=== PATIENT | male | born 1995 | race Caucasian/White ===

== ENCOUNTER 2017-05-04 07:24 | Emergency (ER) | payer MEDICAID ==
[~2017-05-04] VITALS: Ht 170.2 cm; Wt 66.3 kg
[~2017-05-04 07:24] MED LIST: CEPH500C5 PO; CLOT15CR9 TOP; ONDA4TAB6 PO; SACC250C PO; TRAM50TA2 PO
[2017-05-04] MEDS ORDERED: HYDR-3965 PO (08:19)
[2017-05-04] MEDS ORDERED: ONDA4TAB9 PO (08:19)
[2017-05-04] MEDS ORDERED: ibuprofen tablet 400 MG TABLET PO ONE (08:20)
[2017-05-04 08:43] VITALS: BP 121/72
== END 2017-05-04 08:45 | disposition home or self-care (01) ==
LOC: ER 07:24
DX: S92.354A Nondisplaced fracture of fifth metatarsal bone, right foot, initial encounter for closed fracture (principal); F12.10 Cannabis abuse, uncomplicated; V87.8XXA Person injured in other specified noncollision transport accidents involving motor vehicle (traffic), initial encounter; Y93.89 Activity, other specified; Y92.89 Other specified places as the place of occurrence of the external cause; Y99.8 Other external cause status
CPT/HCPCS: 29515; 73630; 99284; A6449

== ENCOUNTER 2017-06-24 15:05 | Emergency (ER) | payer MEDICAID ==
[~2017-06-24] VITALS: Ht 170.2 cm; Wt 55.0 kg
[~2017-06-24 15:05] MED LIST changes: -CEPH500C5 PO
[2017-06-24 15:47] LABS: CLARITY,URINE CLEAR (Clear); COLOR,URINE STRAW (Yellow); GLUCOSE, URINE NEGATIVE (Neg); KETONES,URINE NEGATIVE (Neg); LEUKOCYTE ESTERASE ,URINE NEGATIVE (Neg); NITRITES, URINE NEGATIVE (Neg); OCCULT BLOOD,URINE TRACE-INTACT (Neg); PROTEIN,URINE NEGATIVE (Neg); UROBILINOGEN,URINE 0.2 E.U/dL (0.2-1.0)
[2017-06-24 15:49] LABS: UA COLLECTION TYPE CLN CATCH MIDSTREAM
[2017-06-24 15:50] LABS: BASOPHILS % (AUTO) 0.3 % (0-1); EOSINOPHILS # (AUTO) 0.2 X10'3 (0-0.9); EOSINOPHILS % (AUTO) 1.7 % (0-6); HEMATOCRIT 42.7 % (42.0-52.0); HEMOGLOBIN 14.6 g/dl (14.0-17.9); LYMPHOCYTES # (AUTO) 1.7 X10'3 (1.1-4.8); LYMPHOCYTES % (AUTO) 17.6 % (21-51); MEAN CORPUSCULAR HEMOGLOBIN 30.1 PG (27.0-31.0); MEAN CORPUSCULAR HGB CONC 34.3 % (33.0-36.5); MEAN CORPUSCULAR VOLUME 87.6 FL (78-98); MEAN PLATELET VOLUME 8.7 FL (7.4-10.4); MONOCYTES # (AUTO) 0.5 X10'3 (0-0.9); NEUTROPHILS # (AUTO) 7.3 X10'3 (1.8-7.7); NEUTROPHILS % (AUTO) 75.4 % (42-75); PLATELET COUNT 280 X10'3 (140-440); RED BLOOD COUNT 4.87 X10'6 (4.70-6.10); RED CELL DISTRIBUTION WIDTH 14.7 % (11.5-14.5); WHITE BLOOD COUNT 9.7 X10'3 (4.5-11.0)
[2017-06-24 15:52] LABS: MUCUS STRANDS FEW /LPF (Neg); SQUAMOUS EPITHELIAL CELL,UR FEW /LPF (FEW)
[2017-06-24 15:53] LABS: BACTERIA,URINE FEW /HPF (Neg); RBC,URINE 0-2 /HPF (0-2); WBC,URINE 0-4 /HPF (0-4)
[2017-06-24 16:05] LABS: ALANINE AMINOTRANSFERASE 29 U/L (12-78); ALBUMIN 4.5 G/DL (3.4-5.0); ALBUMIN/GLOBULIN RATIO 1.2 (1.1-1.5); ALKALINE PHOSPHATASE 83 IU/L (46-116); ANION GAP 17 (8-16); ASPARTATE AMINO TRANSFERASE 17 U/L (10-37); BILIRUBIN,TOTAL 0.5 MG/DL (0.1-1.0); BLOOD UREA NITROGEN 11 MG/DL (7-18); BUN/CREATININE RATIO 12.8 (5.4-32.0); CALCIUM 9.6 MG/DL (8.5-10.1); CHLORIDE 104 MMOL/L (99-107); CREATININE 0.86 MG/DL (0.60-1.10); ETHANOL 0.185 GM/DL (0.0-0.010); GLUCOSE 102 MG/DL (70-104); POTASSIUM 3.3 MMOL/L (3.5-5.1); SODIUM 144 MMOL/L (135-145); TOTAL CARBON DIOXIDE 23.1 MMOL/L (24-32); TOTAL PROTEIN 8.3 G/DL (6.4-8.2); eGFR > 90 ML/MIN
[2017-06-24 16:08] LABS: URINE AMPHETAMINE SCREEN NEGATIVE (Neg); URINE BARBITUATE SCREEN NEGATIVE (Neg); URINE BENZODIAZEPINES SCREEN NEGATIVE (Neg); URINE CANNABINOID SCREEN POSITIVE (Neg); URINE COCAINE SCREEN NEGATIVE (Neg); URINE METHADONE SCREEN NEGATIVE (Neg); URINE OPIATE SCREEN NEGATIVE (Neg); URINE PHENCYCLIDINE SCREEN NEGATIVE (Neg)
[2017-06-24] MEDS ORDERED: IBUP-1984 PO (19:00)
[2017-06-24 19:58] VITALS: BP 120/49
== END 2017-06-24 20:13 | disposition home or self-care (01) ==
LOC: ER 15:06
DX: F10.129 Alcohol abuse with intoxication, unspecified (principal); M79.671 Pain in right foot; G89.29 Other chronic pain; F12.10 Cannabis abuse, uncomplicated; K08.89 Other specified disorders of teeth and supporting structures; Z98.890 Other specified postprocedural states; Z60.2 Problems related to living alone; Z59.0 Homelessness; Z79.899 Other long term (current) drug therapy; Y90.0 Blood alcohol level of less than 20 mg/100 ml
CPT/HCPCS: 36415; 73630; 80053; 80305; 80320; 81001; 85025; 99285; L3260

== ENCOUNTER 2017-07-01 14:30 | Emergency (ER) | payer MEDICAID ==
[~2017-07-01] VITALS: Ht 170.2 cm; Wt 68.2 kg
[~2017-07-01 14:30] MED LIST changes: +IBUP-1984 PO
[2017-07-01 14:33] VITALS: BP 132/74
[2017-07-01] MEDS ORDERED: HYDROcodone/acetaminophen 10/325mg tab PO ONE (15:35)
[2017-07-01] MEDS ORDERED: amox tr/potassium clavulanate 875/125mg TAB PO ONE (15:35)
[2017-07-01] MEDS ORDERED: naproxen 500mg tablet PO ONE (15:35)
[2017-07-01] MEDS ORDERED: AMOX-580 PO (15:39)
[2017-07-01] MEDS ORDERED: HYDR-569 PO (15:39)
[2017-07-01] MEDS ORDERED: NAPR-56 PO (15:39)
== END 2017-07-01 15:50 | disposition home or self-care (01) ==
LOC: ER 14:31
DX: K04.7 Periapical abscess without sinus (principal); F12.10 Cannabis abuse, uncomplicated
CPT/HCPCS: 99283

== ENCOUNTER 2017-07-28 10:10 | Emergency (ER) | payer MEDICAID ==
[~2017-07-28] VITALS: Ht 170.2 cm; Wt 69.0 kg
[~2017-07-28 10:10] MED LIST changes: +AMOX-580 PO; +HYDR-569 PO; -IBUP-1984 PO; +NAPR-56 PO
[2017-07-28 10:21] VITALS: BP 115/64
== END 2017-07-28 11:55 | disposition left against medical advice (07) ==
LOC: ER 10:11
DX: T14.8XXA Other injury of unspecified body region, initial encounter (principal); Z53.21 Procedure and treatment not carried out due to patient leaving prior to being seen by health care provider; W57.XXXA Bitten or stung by nonvenomous insect and other nonvenomous arthropods, initial encounter; Y93.89 Activity, other specified; Y92.89 Other specified places as the place of occurrence of the external cause; Y99.8 Other external cause status

== ENCOUNTER 2017-07-29 19:37 | Emergency (ER) | payer MEDICAID | END 2017-07-29 21:34 | disposition left against medical advice (07) | LOC: ER 19:38 | DX: M00.9 Pyogenic arthritis, unspecified (principal); Z53.21 Procedure and treatment not carried out due to patient leaving prior to being seen by health care provider ==

== ENCOUNTER 2017-07-30 21:51 | Emergency (ER) | payer MEDICAID ==
[~2017-07-30] VITALS: Ht 172.7 cm; Wt 70.9 kg
[2017-07-31] MEDS ORDERED: ibuprofen tablet 400 MG TABLET PO ONE
[2017-07-31 00:06] VITALS: BP 138/78
[2017-07-31] MEDS ORDERED: ONDA4TAB12 PO (00:11)
[2017-07-31] MEDS ORDERED: BACDS PO (00:11)
[2017-07-31] MEDS ORDERED: NAPR-56 PO (00:11)
[2017-07-31] MEDS ORDERED: CEPH-572 PO (16:51)
[2017-07-31] MEDS ORDERED: SULF1TAB49 PO (16:51)
== END 2017-07-31 00:23 | disposition home or self-care (01) ==
LOC: ER 21:51
DX: L02.415 Cutaneous abscess of right lower limb (principal); G89.29 Other chronic pain; F12.10 Cannabis abuse, uncomplicated; Z60.2 Problems related to living alone; Z59.0 Homelessness; Z98.890 Other specified postprocedural states; Z79.899 Other long term (current) drug therapy
CPT/HCPCS: 99283

== ENCOUNTER 2017-07-31 16:09 | Emergency (ER) | payer MEDICAID ==
[~2017-07-31] VITALS: Ht 167.6 cm; Wt 62.0 kg
[~2017-07-31 16:09] MED LIST changes: +BACDS PO; +ONDA4TAB12 PO
[2017-07-31] MEDS ORDERED: LIDOcaine 1.5% w/epinephrine 1:200,000 5ml ampul IJ ONE (16:40)
[2017-07-31] MEDS ORDERED: SULF1TAB49 PO (16:51)
[2017-07-31] MEDS ORDERED: CEPH-572 PO (16:51)
[2017-07-31 17:06] VITALS: BP 118/66
[2017-08-02] MEDS ORDERED: CEPH500C5 PO (11:22)
== END 2017-07-31 17:08 | disposition home or self-care (01) ==
LOC: ER 16:10
DX: L02.415 Cutaneous abscess of right lower limb (principal); G89.29 Other chronic pain; F12.10 Cannabis abuse, uncomplicated; Z98.890 Other specified postprocedural states; Z79.899 Other long term (current) drug therapy; Z60.2 Problems related to living alone; Z59.0 Homelessness
CPT/HCPCS: 10060; 99283; J3490

== ENCOUNTER 2017-08-03 09:39 | Emergency (ER) | payer MEDICAID ==
[~2017-08-03] VITALS: Ht 167.6 cm; Wt 63.0 kg
[~2017-08-03 09:39] MED LIST changes: -AMOX-580 PO; +CEPH-572 PO; +CEPH500C5 PO; +SULF1TAB49 PO
[2017-08-03 10:08] VITALS: BP 138/78
[2017-08-03] MEDS ORDERED: IBUP-1984 PO (10:32)
[2017-08-04] MEDS ORDERED: SULF1TAB49 PO (15:57)
== END 2017-08-03 10:51 | disposition home or self-care (01) ==
LOC: ER 09:39
DX: Z48.00 Encounter for change or removal of nonsurgical wound dressing (principal); G89.29 Other chronic pain; F12.10 Cannabis abuse, uncomplicated; Z98.890 Other specified postprocedural states; Z79.899 Other long term (current) drug therapy; Z59.0 Homelessness; Z60.2 Problems related to living alone
CPT/HCPCS: 99282

== ENCOUNTER 2017-08-08 18:06 | Emergency (ER) | payer MEDICAID ==
[~2017-08-08] VITALS: Ht 167.6 cm; Wt 68.1 kg
[~2017-08-08 18:06] MED LIST changes: +IBUP-1984 PO
[2017-08-08 18:20] VITALS: BP 121/65
== END 2017-08-08 21:28 | disposition left against medical advice (07) ==
LOC: ER 18:06
DX: M79.644 Pain in right finger(s) (principal); Z53.21 Procedure and treatment not carried out due to patient leaving prior to being seen by health care provider

== ENCOUNTER 2019-10-26 18:55 | Emergency (ER) | payer MEDICAID ==
[~2019-10-26] VITALS: Ht 170.2 cm; Wt 65.9 kg
[~2019-10-26 18:55] MED LIST changes: -BACDS PO; -CEPH-572 PO; -CEPH500C5 PO; +HYDR-4383 PO; -HYDR-569 PO; -IBUP-1984 PO; -NAPR-56 PO; -SULF1TAB49 PO
[2019-10-26 19:05] VITALS: BP 111/76
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
[2019-10-26] MEDS ORDERED: ibuprofen tablet 400 MG TABLET PO ONE (21:30)
[2019-10-26] MEDS ORDERED: IBUP-1985 PO (21:46)
== END 2019-10-26 21:52 | disposition home or self-care (01) ==
LOC: ER 19:05
DX: S00.03XA Contusion of scalp, initial encounter (principal); S50.311A Abrasion of right elbow, initial encounter; G89.29 Other chronic pain; F32.9 Major depressive disorder, single episode, unspecified; F12.90 Cannabis use, unspecified, uncomplicated; R42 Dizziness and giddiness; Z98.890 Other specified postprocedural states; Z60.2 Problems related to living alone; Z59.0 Homelessness; Z79.899 Other long term (current) drug therapy; Y09 Assault by unspecified means; Y93.89 Activity, other specified; Y92.89 Other specified places as the place of occurrence of the external cause; Y99.8 Other external cause status
CPT/HCPCS: 99284

== ENCOUNTER 2019-12-24 08:42 | Emergency (ER) | payer MEDICAID ==
[~2019-12-24] VITALS: Ht 170.2 cm; Wt 65.9 kg
[~2019-12-24 08:42] MED LIST changes: +IBUP-1985 PO
[2019-12-24 08:54] VITALS: BP 145/73
[2019-12-24] MEDS ORDERED: LORazepam 1 MG tablet PO ONE (09:20)
[2019-12-24 09:25] LABS: BASOPHILS % (AUTO) 0.5 % (0-1); EOSINOPHILS % (AUTO) 0.5 % (0-6); HEMATOCRIT 45.1 % (42.0-52.0); HEMOGLOBIN 15.6 g/dl (14.0-17.9); LYMPHOCYTES # (AUTO) 1.3 X10'3 (1.1-4.8); LYMPHOCYTES % (AUTO) 17.6 % (21-51); MEAN CORPUSCULAR HEMOGLOBIN 30.9 PG (27.0-31.0); MEAN CORPUSCULAR HGB CONC 34.6 g/dL (33.0-36.5); MEAN CORPUSCULAR VOLUME 89.2 FL (78-98); MONOCYTES # (AUTO) 0.4 X10'3 (0-0.9); MONOCYTES % (AUTO) 5.5 % (2-12); NEUTROPHILS # (AUTO) 5.6 X10'3 (1.8-7.7); NEUTROPHILS % (AUTO) 75.9 % (42-75); PLATELET COUNT 245 X10'3 (140-440); RED BLOOD COUNT 5.06 X10'6 (4.70-6.10); RED CELL DISTRIBUTION WIDTH 14.1 % (11.5-14.5); WHITE BLOOD COUNT 7.3 X10'3 (4.5-11.0)
[2019-12-24 09:38] LABS: PARTIAL THROMBOPLASTIN TIME 26 SECONDS (22-32)
[2019-12-24 09:41] LABS: ALANINE AMINOTRANSFERASE 52 U/L (12-78); ALBUMIN 4.7 G/DL (3.4-5.0); ALBUMIN/GLOBULIN RATIO 1.3 (1.1-1.5); ALKALINE PHOSPHATASE 79 IU/L (46-116); ANION GAP 12 (8-16); ASPARTATE AMINO TRANSFERASE 30 U/L (10-37); BLOOD UREA NITROGEN 14 MG/DL (7-18); BUN/CREATININE RATIO 15.4 (5.4-32.0); CALCIUM 9.5 MG/DL (8.5-10.1); CHLORIDE 101 MMOL/L (99-107); CREATININE 0.91 MG/DL (0.60-1.10); GLUCOSE 98 MG/DL (70-104); POTASSIUM 3.6 MMOL/L (3.5-5.1); SODIUM 135 MMOL/L (135-145); TOTAL CARBON DIOXIDE 22.2 MMOL/L (24-32); TOTAL PROTEIN 8.3 G/DL (6.4-8.2); eGFR > 90 ML/MIN
[2019-12-24 09:50] LABS: MAGNESIUM 1.9 MG/DL (1.5-2.4)
[2019-12-24 09:52] LABS: ETHANOL < 0.010 GM/DL (0.0-0.010)
[2019-12-24 09:52] LABS: CLARITY,URINE CLEAR (Clear); COLOR,URINE YELLOW (Yellow); GLUCOSE, URINE NEGATIVE (Neg); KETONES,URINE >=80 mg/dl (Neg); LEUKOCYTE ESTERASE ,URINE TRACE (Neg); NITRITES, URINE NEGATIVE (Neg); OCCULT BLOOD,URINE NEGATIVE (Neg); PROTEIN,URINE TRACE mg/dl (Neg)
[2019-12-24 09:55] LABS: UA COLLECTION TYPE CLN CATCH MIDSTREAM
[2019-12-24 09:57] LABS: BACTERIA,URINE FEW /HPF (Neg); MUCUS STRANDS MODERATE /LPF (Neg); RBC,URINE NONE SEEN /HPF (0-2); SQUAMOUS EPITHELIAL CELL,UR FEW /LPF (FEW); URINE AMPHETAMINE SCREEN NEGATIVE (Neg); URINE BARBITUATE SCREEN NEGATIVE (Neg); URINE BENZODIAZEPINES SCREEN NEGATIVE (Neg); URINE CANNABINOID SCREEN POSITIVE (Neg); URINE COCAINE SCREEN NEGATIVE (Neg); URINE METHADONE SCREEN NEGATIVE (Neg); URINE OPIATE SCREEN NEGATIVE (Neg); URINE PHENCYCLIDINE SCREEN NEGATIVE (Neg)
[2019-12-24] MEDS ORDERED: CEPH250T PO (10:33)
[2019-12-24] MEDS ORDERED: ondansetron 4mg rapidly disintigrating tab PO ONE (10:35)
[2019-12-24] MEDS ORDERED: cephalexin 500mg capsule PO ONE (10:35)
== END 2019-12-24 10:47 | disposition home or self-care (01) ==
LOC: ER 08:42
DX: F41.9 Anxiety disorder, unspecified (principal); N39.0 Urinary tract infection, site not specified; G89.29 Other chronic pain; F32.9 Major depressive disorder, single episode, unspecified; F12.90 Cannabis use, unspecified, uncomplicated; Z98.890 Other specified postprocedural states; Z60.2 Problems related to living alone; Z59.0 Homelessness; Z79.2 Long term (current) use of antibiotics; Z79.899 Other long term (current) drug therapy
CPT/HCPCS: 36415; 80053; 80305; 80320; 81001; 83735; 84443; 84484; 85025; 85610; 85730; 93005; 99284

== ENCOUNTER 2019-12-26 08:28 | Emergency (ER) | payer MEDICAID ==
[~2019-12-26] VITALS: Ht 170.2 cm; Wt 65.5 kg
[~2019-12-26 08:28] MED LIST changes: +CEPH250T PO
[2019-12-26] MEDS ORDERED: normal saline 1000ml 1,000 ML IV ONE (08:40)
[2019-12-26] MEDS ORDERED: famotidine/PF 10 mg/ml inj IV ONE (08:40)
[2019-12-26] MEDS ORDERED: haloperidol lactate 5mg/ml inj IM ONE (08:40)
[2019-12-26 09:19] LABS: ALANINE AMINOTRANSFERASE 44 U/L (12-78); ALBUMIN 4.1 G/DL (3.4-5.0); ALBUMIN/GLOBULIN RATIO 1.3 (1.1-1.5); ALKALINE PHOSPHATASE 66 IU/L (46-116); ANION GAP 14 (8-16); ASPARTATE AMINO TRANSFERASE 24 U/L (10-37); BILIRUBIN,TOTAL 0.7 MG/DL (0.1-1.0); BLOOD UREA NITROGEN 14 MG/DL (7-18); CALCIUM 8.9 MG/DL (8.5-10.1); CHLORIDE 108 MMOL/L (99-107); GLUCOSE 155 MG/DL (70-104); LIPASE 64 U/L (73-393); SODIUM 141 MMOL/L (135-145); TOTAL CARBON DIOXIDE 19.4 MMOL/L (24-32); TOTAL PROTEIN 7.2 G/DL (6.4-8.2)
[2019-12-26] MEDS ORDERED: metoclopramide 5 mg/ml inj IV ONE (09:25)
[2019-12-26 09:39] LABS: BUN/CREATININE RATIO 14.1 (5.4-32.0); eGFR > 90 ML/MIN
[2019-12-26 09:40] LABS: CREATININE 0.99 MG/DL (0.60-1.10); POTASSIUM 3.5 MMOL/L (3.5-5.1)
[2019-12-26] MEDS ORDERED: ondansetron/PF 4mg/2ml inj IV ONE (10:25)
[2019-12-26] MEDS ORDERED: LORazepam 2 mg/ml vial IV ONE (10:45)
[2019-12-26] MEDS ORDERED: ONDA4TAB6 PO (11:26)
[2019-12-26 11:49] VITALS: BP 108/43
== END 2019-12-26 11:52 | disposition home or self-care (01) ==
LOC: ER 08:28
DX: R11.2 Nausea with vomiting, unspecified (principal); R10.13 Epigastric pain; R10.10 Upper abdominal pain, unspecified; G89.29 Other chronic pain; F41.9 Anxiety disorder, unspecified; F32.9 Major depressive disorder, single episode, unspecified; F12.90 Cannabis use, unspecified, uncomplicated; Z60.2 Problems related to living alone; Z59.0 Homelessness; Z72.89 Other problems related to lifestyle; Z79.899 Other long term (current) drug therapy
CPT/HCPCS: 36415; 80053; 83690; 96372; 96374; 96375; 99284; J1630; J2060; J2405; J2765; J3490; J7030

== ENCOUNTER 2019-12-30 08:00 | Emergency (ER) | payer MEDICAID ==
[~2019-12-30] VITALS: Ht 170.2 cm; Wt 66.7 kg
[2019-12-30] MEDS ORDERED: ondansetron/PF 4mg/2ml inj IV ONE (08:25)
[2019-12-30] MEDS ORDERED: haloperidol lactate 5mg/ml inj IM ONE (08:25)
[2019-12-30] MEDS ORDERED: normal saline 1000ml 1,000 ML IV ONE (08:25)
[2019-12-30] MEDS ORDERED: famotidine/PF 10 mg/ml inj IV ONE (08:25)
[2019-12-30] MEDS ORDERED: diphenhydrAMINE 50 mg/ml inj IV ONE (08:25)
[2019-12-30] MEDS ORDERED: pantoprazole 40 MG vial IV ONE (08:25)
[2019-12-30] MEDS ORDERED: ketorolac tromethamine 15mg/ml inj. IV ONE (08:25)
[2019-12-30] MEDS ORDERED: metoclopramide 5 mg/ml inj IV ONE (08:25)
[2019-12-30] MEDS ORDERED: ONDA8TAB6 PO (08:29)
[2019-12-30] MEDS ORDERED: PANT-47 PO (08:29)
[2019-12-30 09:11] VITALS: BP 144/81
== END 2019-12-30 09:13 | disposition home or self-care (01) ==
LOC: ER 08:01
DX: K29.20 Alcoholic gastritis without bleeding (principal); F10.10 Alcohol abuse, uncomplicated; Y90.9 Presence of alcohol in blood, level not specified; G89.29 Other chronic pain; F41.9 Anxiety disorder, unspecified; F32.9 Major depressive disorder, single episode, unspecified; F12.90 Cannabis use, unspecified, uncomplicated; Z98.890 Other specified postprocedural states; Z60.2 Problems related to living alone; Z59.0 Homelessness; Z79.2 Long term (current) use of antibiotics; Z79.899 Other long term (current) drug therapy
CPT/HCPCS: 96361; 96372; 96374; 96375; 99284; C9113; J1200; J1630; J1885; J2405; J2765; J3490; J7030

== ENCOUNTER 2020-01-18 06:47 | Emergency (ER) | payer MEDICAID ==
[~2020-01-18] VITALS: Ht 177.8 cm; Wt 70.0 kg
[~2020-01-18 06:47] MED LIST changes: +ONDA8TAB6 PO; +PANT-47 PO
[2020-01-18] MEDS ORDERED: LORazepam 2 mg/ml vial IV ONE (07:35)
[2020-01-18] MEDS ORDERED: normal saline 1000ML IV soln IVB ONE (07:35)
[2020-01-18 08:06] LABS: BASOPHILS % (AUTO) 0.4 % (0-1); EOSINOPHILS % (AUTO) 0.1 % (0-6); HEMATOCRIT 42.5 % (42.0-52.0); LYMPHOCYTES # (AUTO) 0.7 X10'3 (1.1-4.8); LYMPHOCYTES % (AUTO) 6.6 % (21-51); MEAN CORPUSCULAR HEMOGLOBIN 29.5 PG (27.0-31.0); MEAN CORPUSCULAR HGB CONC 32.9 g/dL (33.0-36.5); MEAN CORPUSCULAR VOLUME 89.6 FL (78-98); MEAN PLATELET VOLUME 8.8 FL (7.4-10.4); MONOCYTES # (AUTO) 1.1 X10'3 (0-0.9); MONOCYTES % (AUTO) 9.7 % (2-12); NEUTROPHILS # (AUTO) 9.1 X10'3 (1.8-7.7); NEUTROPHILS % (AUTO) 83.2 % (42-75); PLATELET COUNT 250 X10'3 (140-440); RED BLOOD COUNT 4.74 X10'6 (4.70-6.10); RED CELL DISTRIBUTION WIDTH 13.9 % (11.5-14.5); WHITE BLOOD COUNT 10.9 X10'3 (4.5-11.0)
[2020-01-18 08:22] LABS: ALANINE AMINOTRANSFERASE 22 U/L (12-78); ALBUMIN/GLOBULIN RATIO 1.1 (1.1-1.5); ALKALINE PHOSPHATASE 93 IU/L (46-116); ANION GAP 14 (8-16); ASPARTATE AMINO TRANSFERASE 16 U/L (10-37); BILIRUBIN,TOTAL 0.5 MG/DL (0.1-1.0); BLOOD UREA NITROGEN 7 MG/DL (7-18); CALCIUM 8.7 MG/DL (8.5-10.1); CHLORIDE 105 MMOL/L (99-107); CREATININE 0.78 MG/DL (0.60-1.10); GLUCOSE 130 MG/DL (70-104); POTASSIUM 3.2 MMOL/L (3.5-5.1); SODIUM 140 MMOL/L (135-145); TOTAL CARBON DIOXIDE 21.4 MMOL/L (24-32); TOTAL PROTEIN 7.7 G/DL (6.4-8.2); eGFR > 90 ML/MIN
[2020-01-18 08:24] LABS: ETHANOL < 0.010 GM/DL (0.0-0.010)
[2020-01-18 08:52] VITALS: BP 115/58
== END 2020-01-18 08:54 | disposition home or self-care (01) ==
LOC: ER 06:47
DX: K29.20 Alcoholic gastritis without bleeding (principal); F10.10 Alcohol abuse, uncomplicated; R06.4 Hyperventilation; E86.0 Dehydration; G89.29 Other chronic pain; F41.9 Anxiety disorder, unspecified; F32.9 Major depressive disorder, single episode, unspecified; F12.90 Cannabis use, unspecified, uncomplicated; Z98.890 Other specified postprocedural states; Z60.2 Problems related to living alone; Z59.0 Homelessness; Z79.899 Other long term (current) drug therapy; Y90.0 Blood alcohol level of less than 20 mg/100 ml
CPT/HCPCS: 36415; 80053; 80320; 85025; 96361; 96374; 99284; J2060; J7030

== ENCOUNTER 2020-01-31 18:46 | Emergency (ER) | payer MEDICAID ==
[~2020-01-31] VITALS: Ht 170.2 cm; Wt 68.5 kg
[2020-01-31 19:47] LABS: COLOR,URINE YELLOW (Yellow); GLUCOSE, URINE NEGATIVE (Neg); KETONES,URINE NEGATIVE (Neg); LEUKOCYTE ESTERASE ,URINE MODERATE (Neg); NITRITES, URINE NEGATIVE (Neg); OCCULT BLOOD,URINE TRACE-INTACT (Neg); PH,URINE 5.5 (4.8-8.0); PROTEIN,URINE NEGATIVE (Neg); UROBILINOGEN,URINE 0.2 E.U/dL (0.2-1.0)
[2020-01-31 19:48] LABS: CLARITY,URINE CLOUDY (Clear); UA COLLECTION TYPE CLN CATCH MIDSTREAM
[2020-01-31 19:50] LABS: WBC,URINE TNTC /HPF (0-4)
[2020-01-31 19:51] LABS: BACTERIA,URINE 3+ /HPF (Neg); MUCUS STRANDS FEW /LPF (Neg); RBC,URINE 0-2 /HPF (0-2); SQUAMOUS EPITHELIAL CELL,UR MODERATE /LPF (FEW); TRANSITIONAL EPI CELLS,URINE FEW /HPF; WBC CLUMPS,URINE MODERATE /HPF (NEGATIVE)
[2020-01-31] MEDS ORDERED: NITR100C6 PO (20:02)
[2020-01-31] MEDS ORDERED: CefTRIAXone 250MG IM Kit w/LIDOcaine IM ONE (20:05)
[2020-01-31] MEDS ORDERED: azithromycin 250mg tablet PO ONE (20:05)
[2020-01-31 20:14] VITALS: BP 110/56
== END 2020-01-31 20:16 | disposition home or self-care (01) ==
LOC: ER 18:47
DX: N39.0 Urinary tract infection, site not specified (principal); R30.9 Painful micturition, unspecified; R31.9 Hematuria, unspecified; G89.29 Other chronic pain; F41.9 Anxiety disorder, unspecified; F32.9 Major depressive disorder, single episode, unspecified; F12.90 Cannabis use, unspecified, uncomplicated; Z72.89 Other problems related to lifestyle; Z60.2 Problems related to living alone; Z59.0 Homelessness; Z98.890 Other specified postprocedural states; Z79.2 Long term (current) use of antibiotics; Z79.899 Other long term (current) drug therapy
CPT/HCPCS: 81001; 87088; 96372; 99283; J0696

== ENCOUNTER 2020-02-03 07:08 | Emergency (ER) | payer MEDICAID ==
[~2020-02-03] VITALS: Ht 170.2 cm; Wt 62.0 kg
[~2020-02-03 07:08] MED LIST changes: +NITR100C6 PO
[2020-02-03 08:00] LABS: HEMOGLOBIN 15.7 g/dl (14.0-17.9); MEAN PLATELET VOLUME 8.9 FL (7.4-10.4)
[2020-02-03] MEDS ORDERED: proCHLORperazine 10 MG/2 ml inj IV ONE (08:00)
[2020-02-03] MEDS ORDERED: normal saline 1000ML IV soln IVB ONE ×2 (08:00)
[2020-02-03] MEDS ORDERED: pantoprazole 40 MG vial IV ONE (08:00)
[2020-02-03 08:02] LABS: BASOPHILS % (AUTO) 0.4 % (0-1); EOSINOPHILS # (AUTO) 0.1 X10'3 (0-0.9); EOSINOPHILS % (AUTO) 0.8 % (0-6); HEMATOCRIT 46.7 % (42.0-52.0); LYMPHOCYTES # (AUTO) 1.5 X10'3 (1.1-4.8); LYMPHOCYTES % (AUTO) 15.2 % (21-51); MEAN CORPUSCULAR HEMOGLOBIN 30.1 PG (27.0-31.0); MEAN CORPUSCULAR HGB CONC 33.6 g/dL (33.0-36.5); MEAN CORPUSCULAR VOLUME 89.8 FL (78-98); MONOCYTES # (AUTO) 0.3 X10'3 (0-0.9); MONOCYTES % (AUTO) 3.5 % (2-12); NEUTROPHILS # (AUTO) 7.8 X10'3 (1.8-7.7); NEUTROPHILS % (AUTO) 80.1 % (42-75); PLATELET COUNT 327 X10'3 (140-440); RED CELL DISTRIBUTION WIDTH 13.7 % (11.5-14.5); WHITE BLOOD COUNT 9.7 X10'3 (4.5-11.0)
[2020-02-03 08:18] LABS: ALANINE AMINOTRANSFERASE 32 U/L (12-78); ALBUMIN 4.6 G/DL (3.4-5.0); ALBUMIN/GLOBULIN RATIO 1.1 (1.1-1.5); ALKALINE PHOSPHATASE 94 IU/L (46-116); ANION GAP 13 (8-16); ASPARTATE AMINO TRANSFERASE 17 U/L (10-37); BILIRUBIN,TOTAL 0.5 MG/DL (0.1-1.0); BLOOD UREA NITROGEN 12 MG/DL (7-18); BUN/CREATININE RATIO 12.8 (5.4-32.0); CALCIUM 10.1 MG/DL (8.5-10.1); CHLORIDE 101 MMOL/L (99-107); CREATININE 0.94 MG/DL (0.60-1.10); GLUCOSE 122 MG/DL (70-104); POTASSIUM 3.2 MMOL/L (3.5-5.1); SODIUM 137 MMOL/L (135-145); TOTAL CARBON DIOXIDE 22.7 MMOL/L (24-32); TOTAL PROTEIN 8.9 G/DL (6.4-8.2); eGFR > 90 ML/MIN
[2020-02-03 08:21] LABS: ETHANOL < 0.010 GM/DL (0.0-0.010); LIPASE 92 U/L (73-393)
[2020-02-03] MEDS ORDERED: diazepam inj 5 MG/ML inj. IV ONE (08:55)
[2020-02-03] MEDS ORDERED: ondansetron/PF 4mg/2ml inj IV ONE (08:55)
[2020-02-03] MEDS ORDERED: PANT-47 PO (09:56)
[2020-02-03] MEDS ORDERED: ONDA8TAB13 PO (09:56)
[2020-02-03 10:19] VITALS: BP 100/58
== END 2020-02-03 10:26 | disposition home or self-care (01) ==
LOC: ER 07:08
DX: K29.20 Alcoholic gastritis without bleeding (principal); F10.10 Alcohol abuse, uncomplicated
CPT/HCPCS: 36415; 74022; 80053; 80320; 83690; 85025; 96361; 96374; 96375; 99284; C9113; J0780; J2405; J3360; J7030

== ENCOUNTER 2020-02-07 11:45 | Emergency (ER) | payer MEDICAID ==
[~2020-02-07] VITALS: Ht 170.2 cm; Wt 65.9 kg
[~2020-02-07 11:45] MED LIST changes: +ONDA8TAB13 PO
[2020-02-07 11:47] VITALS: BP 116/67
[2020-02-07] MEDS ORDERED: ONDA4TAB6 PO (12:12)
== END 2020-02-07 12:36 | disposition home or self-care (01) ==
LOC: ER 11:46
DX: R11.2 Nausea with vomiting, unspecified (principal); F10.10 Alcohol abuse, uncomplicated; G89.29 Other chronic pain; F41.9 Anxiety disorder, unspecified; F32.9 Major depressive disorder, single episode, unspecified; F12.90 Cannabis use, unspecified, uncomplicated; Z60.2 Problems related to living alone; Z59.0 Homelessness; Z79.899 Other long term (current) drug therapy; Y90.9 Presence of alcohol in blood, level not specified
CPT/HCPCS: 99283

== ENCOUNTER 2020-02-11 07:27 | Emergency (ER) | payer MEDICAID ==
[~2020-02-11] VITALS: Ht 170.2 cm; Wt 66.2 kg
[2020-02-11] MEDS ORDERED: diphenhydrAMINE 50 mg/ml inj IV ONE (07:55)
[2020-02-11] MEDS ORDERED: ondansetron/PF 4mg/2ml inj IV ONE (07:55)
[2020-02-11] MEDS ORDERED: normal saline 1000ML IV soln IVB ONE (07:55)
[2020-02-11] MEDS ORDERED: haloperidol lactate 5mg/ml inj IM ONE (07:55)
[2020-02-11 08:11] LABS: BASOPHILS % (AUTO) 0.3 % (0-1); EOSINOPHILS % (AUTO) 0.1 % (0-6); HEMATOCRIT 44.1 % (42.0-52.0); HEMOGLOBIN 14.7 g/dl (14.0-17.9); LYMPHOCYTES # (AUTO) 0.8 X10'3 (1.1-4.8); LYMPHOCYTES % (AUTO) 7.3 % (21-51); MEAN CORPUSCULAR HEMOGLOBIN 30.2 PG (27.0-31.0); MEAN CORPUSCULAR HGB CONC 33.3 g/dL (33.0-36.5); MEAN CORPUSCULAR VOLUME 90.6 FL (78-98); MEAN PLATELET VOLUME 8.9 FL (7.4-10.4); MONOCYTES # (AUTO) 0.4 X10'3 (0-0.9); MONOCYTES % (AUTO) 3.1 % (2-12); NEUTROPHILS # (AUTO) 10.1 X10'3 (1.8-7.7); NEUTROPHILS % (AUTO) 89.2 % (42-75); PLATELET COUNT 268 X10'3 (140-440); RED BLOOD COUNT 4.87 X10'6 (4.70-6.10); RED CELL DISTRIBUTION WIDTH 14.5 % (11.5-14.5); WHITE BLOOD COUNT 11.3 X10'3 (4.5-11.0)
[2020-02-11 08:29] LABS: ALANINE AMINOTRANSFERASE 33 U/L (12-78); ALBUMIN 4.6 G/DL (3.4-5.0); ALBUMIN/GLOBULIN RATIO 1.2 (1.1-1.5); ALKALINE PHOSPHATASE 79 IU/L (46-116); ANION GAP 9 (8-16); ASPARTATE AMINO TRANSFERASE 19 U/L (10-37); BILIRUBIN,TOTAL 0.5 MG/DL (0.1-1.0); BLOOD UREA NITROGEN 7 MG/DL (7-18); BUN/CREATININE RATIO 6.4 (5.4-32.0); CALCIUM 9.4 MG/DL (8.5-10.1); CHLORIDE 105 MMOL/L (99-107); CREATININE 1.09 MG/DL (0.60-1.10); GLUCOSE 136 MG/DL (70-104); LIPASE 81 U/L (73-393); POTASSIUM 3.2 MMOL/L (3.5-5.1); SODIUM 141 MMOL/L (135-145); TOTAL CARBON DIOXIDE 26.9 MMOL/L (24-32); TOTAL PROTEIN 8.3 G/DL (6.4-8.2); eGFR 82 ML/MIN
[2020-02-11 10:19] VITALS: BP 95/47
[2020-02-11] MEDS ORDERED: PROM25TA14 PO (10:27)
== END 2020-02-11 11:04 | disposition home or self-care (01) ==
LOC: ER 07:27
DX: R11.15 Cyclical vomiting syndrome unrelated to migraine (principal); R11.2 Nausea with vomiting, unspecified; R10.84 Generalized abdominal pain; G89.29 Other chronic pain; F41.9 Anxiety disorder, unspecified; F32.9 Major depressive disorder, single episode, unspecified; F12.90 Cannabis use, unspecified, uncomplicated; Z98.890 Other specified postprocedural states; Z72.89 Other problems related to lifestyle; Z60.2 Problems related to living alone; Z59.0 Homelessness; Z79.2 Long term (current) use of antibiotics; Z79.899 Other long term (current) drug therapy
CPT/HCPCS: 36415; 80053; 83690; 85025; 96361; 96372; 96374; 96375; 99285; J1200; J1630; J2405; J7030

== ENCOUNTER 2020-02-12 07:46 | Emergency (ER) | payer MEDICAID ==
[~2020-02-12] VITALS: Ht 170.2 cm; Wt 66.9 kg
[~2020-02-12 07:46] MED LIST changes: +PROM25TA14 PO
[2020-02-12 07:55] VITALS: BP 124/81
[2020-02-12] MEDS ORDERED: diphenhydrAMINE 25mg capsule PO ONE (08:20)
== END 2020-02-12 08:26 | disposition home or self-care (01) ==
LOC: ER 07:47
DX: R25.2 Cramp and spasm (principal); F31.9 Bipolar disorder, unspecified; F32.9 Major depressive disorder, single episode, unspecified; G89.29 Other chronic pain; F12.10 Cannabis abuse, uncomplicated; Z59.0 Homelessness; Z79.899 Other long term (current) drug therapy
CPT/HCPCS: 99282; Q0163

== ENCOUNTER 2020-03-07 01:18 | Emergency (ER) | payer MEDICAID ==
[~2020-03-07] VITALS: Ht 170.2 cm; Wt 68.2 kg
[2020-03-07 01:33] LABS: BASOPHILS % (AUTO) 0.5 % (0-1); EOSINOPHILS # (AUTO) 0.1 X10'3 (0-0.9); EOSINOPHILS % (AUTO) 0.6 % (0-6); HEMATOCRIT 44.2 % (42.0-52.0); HEMOGLOBIN 15.1 g/dl (14.0-17.9); LYMPHOCYTES # (AUTO) 2.9 X10'3 (1.1-4.8); LYMPHOCYTES % (AUTO) 29.4 % (21-51); MEAN CORPUSCULAR HEMOGLOBIN 30.5 PG (27.0-31.0); MEAN CORPUSCULAR HGB CONC 34.2 g/dL (33.0-36.5); MEAN CORPUSCULAR VOLUME 89.3 FL (78-98); MEAN PLATELET VOLUME 8.7 FL (7.4-10.4); MONOCYTES # (AUTO) 0.5 X10'3 (0-0.9); MONOCYTES % (AUTO) 5.4 % (2-12); NEUTROPHILS # (AUTO) 6.4 X10'3 (1.8-7.7); NEUTROPHILS % (AUTO) 64.1 % (42-75); PLATELET COUNT 275 X10'3 (140-440); RED BLOOD COUNT 4.94 X10'6 (4.70-6.10); RED CELL DISTRIBUTION WIDTH 14.5 % (11.5-14.5)
[2020-03-07] MEDS ORDERED: proCHLORperazine 10 MG/2 ml inj IV ONE (01:35)
[2020-03-07] MEDS ORDERED: diphenhydrAMINE 50 mg/ml inj IV ONE (01:35)
[2020-03-07] MEDS ORDERED: ondansetron/PF 4mg/2ml inj IV ONE (01:35)
[2020-03-07] MEDS ORDERED: pantoprazole 40 MG vial IV ONE (01:45)
[2020-03-07] MEDS ORDERED: normal saline 1000ML IV soln IVB ONE (01:45)
[2020-03-07 01:47] LABS: ALANINE AMINOTRANSFERASE 30 U/L (12-78); ALBUMIN 4.6 G/DL (3.4-5.0); ALBUMIN/GLOBULIN RATIO 1.3 (1.1-1.5); ALKALINE PHOSPHATASE 84 IU/L (46-116); ANION GAP 16 (8-16); ASPARTATE AMINO TRANSFERASE 21 U/L (10-37); BLOOD UREA NITROGEN 12 MG/DL (7-18); BUN/CREATININE RATIO 10.7 (5.4-32.0); CALCIUM 9.2 MG/DL (8.5-10.1); CHLORIDE 102 MMOL/L (99-107); CREATININE 1.12 MG/DL (0.60-1.10); GLUCOSE 162 MG/DL (70-104); LIPASE 156 U/L (73-393); POTASSIUM 3.4 MMOL/L (3.5-5.1); SODIUM 138 MMOL/L (135-145); TOTAL CARBON DIOXIDE 19.8 MMOL/L (24-32); TOTAL PROTEIN 8.1 G/DL (6.4-8.2); eGFR 80 ML/MIN
[2020-03-07] MEDS ORDERED: metoclopramide 5 mg/ml inj IV ONE (02:10)
[2020-03-07 02:23] VITALS: BP 123/60
== END 2020-03-07 02:51 | disposition home or self-care (01) ==
LOC: ER 01:19
DX: R11.15 Cyclical vomiting syndrome unrelated to migraine (principal); R11.10 Vomiting, unspecified; G89.29 Other chronic pain; F41.9 Anxiety disorder, unspecified; F32.9 Major depressive disorder, single episode, unspecified; F12.90 Cannabis use, unspecified, uncomplicated; Z72.89 Other problems related to lifestyle; Z98.890 Other specified postprocedural states; Z60.2 Problems related to living alone; Z59.0 Homelessness; Z79.899 Other long term (current) drug therapy
CPT/HCPCS: 36415; 80053; 83690; 85025; 96361; 96374; 96375; 99284; C9113; J0780; J1200; J2405; J2765; J7030

== ENCOUNTER 2020-03-09 05:43 | Emergency (ER) | payer MEDICAID ==
[~2020-03-09] VITALS: Ht 170.2 cm; Wt 65.9 kg
[2020-03-09] MEDS ORDERED: diphenhydrAMINE 50 mg/ml inj IV ONE (05:50)
[2020-03-09] MEDS ORDERED: ondansetron/PF 4mg/2ml inj IV ONE (05:50)
[2020-03-09] MEDS ORDERED: haloperidol lactate 5mg/ml inj IM ONE (05:50)
[2020-03-09] MEDS ORDERED: normal saline 1000ML IV soln IVB ONE (05:50)
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
[2020-03-09 06:29] LABS: ALANINE AMINOTRANSFERASE 25 U/L (12-78); ALBUMIN 4.5 G/DL (3.4-5.0); ALBUMIN/GLOBULIN RATIO 1.4 (1.1-1.5); ALKALINE PHOSPHATASE 77 IU/L (46-116); ANION GAP 16 (8-16); ASPARTATE AMINO TRANSFERASE 17 U/L (10-37); BILIRUBIN,TOTAL 0.7 MG/DL (0.1-1.0); BLOOD UREA NITROGEN 6 MG/DL (7-18); BUN/CREATININE RATIO 6.1 (5.4-32.0); CALCIUM 9.5 MG/DL (8.5-10.1); CHLORIDE 102 MMOL/L (99-107); CREATININE 0.99 MG/DL (0.60-1.10); GLUCOSE 136 MG/DL (70-104); LIPASE 154 U/L (73-393); POTASSIUM 3.6 MMOL/L (3.5-5.1); SODIUM 138 MMOL/L (135-145); TOTAL CARBON DIOXIDE 19.6 MMOL/L (24-32); TOTAL PROTEIN 7.8 G/DL (6.4-8.2); eGFR > 90 ML/MIN
--- NOTE | 2020-03-09 06:36 | NUR ---
Per Dr Duncan, pt not to be redrawn for clotted CBC.
[2020-03-09 06:58] VITALS: BP 127/67
== END 2020-03-09 07:28 | disposition home or self-care (01) ==
LOC: ER 05:43
DX: R11.15 Cyclical vomiting syndrome unrelated to migraine (principal); R11.2 Nausea with vomiting, unspecified; R10.84 Generalized abdominal pain; G89.29 Other chronic pain; F41.9 Anxiety disorder, unspecified; F32.9 Major depressive disorder, single episode, unspecified; F12.90 Cannabis use, unspecified, uncomplicated; Z98.890 Other specified postprocedural states; Z72.89 Other problems related to lifestyle; Z60.2 Problems related to living alone; Z59.0 Homelessness; Z79.2 Long term (current) use of antibiotics; Z79.899 Other long term (current) drug therapy
CPT/HCPCS: 36415; 80053; 83690; 93005; 96361; 96372; 96374; 96375; 99284; J1200; J1630; J2405; J7030

== ENCOUNTER 2020-04-24 11:37 | Emergency (ER) | payer MEDICAID ==
[~2020-04-24] VITALS: Ht 167.6 cm; Wt 65.7 kg
[2020-04-24 11:43] VITALS: BP 123/76
[2020-04-24] MEDS ORDERED: CEPH250T PO (12:18)
[2020-04-24] MEDS ORDERED: IBUP-1984 PO (12:18)
[2020-04-24] MEDS ORDERED: ibuprofen tablet 400 MG TABLET PO ONE (12:20)
== END 2020-04-24 12:33 | disposition home or self-care (01) ==
LOC: ER 11:38
DX: S09.90XA Unspecified injury of head, initial encounter (principal); G89.29 Other chronic pain; F41.9 Anxiety disorder, unspecified; F32.9 Major depressive disorder, single episode, unspecified; F12.90 Cannabis use, unspecified, uncomplicated; Z98.890 Other specified postprocedural states; Z72.89 Other problems related to lifestyle; Z60.2 Problems related to living alone; Z59.0 Homelessness; Z79.2 Long term (current) use of antibiotics; Z79.899 Other long term (current) drug therapy; X58.XXXA Exposure to other specified factors, initial encounter; Y93.89 Activity, other specified; Y92.89 Other specified places as the place of occurrence of the external cause; Y99.8 Other external cause status
CPT/HCPCS: 99283

== ENCOUNTER 2020-04-29 09:00 | Emergency (ER) | payer MEDICAID ==
[~2020-04-29] VITALS: Ht 167.6 cm; Wt 65.9 kg
[~2020-04-29 09:00] MED LIST changes: +IBUP-1984 PO
== END 2020-04-29 09:33 | disposition home or self-care (01) ==
LOC: ER 09:00
DX: S01.01XD Laceration without foreign body of scalp, subsequent encounter (principal); G89.29 Other chronic pain; Z48.02 Encounter for removal of sutures; Z79.2 Long term (current) use of antibiotics; Z79.899 Other long term (current) drug therapy; Z72.89 Other problems related to lifestyle; Z59.0 Homelessness; Y04.8XXD Assault by other bodily force, subsequent encounter
CPT/HCPCS: 99281

== ENCOUNTER 2020-06-17 08:04 | Emergency (ER) | payer MEDICAID ==
[~2020-06-17] VITALS: Ht 167.6 cm; Wt 70.0 kg
[~2020-06-17 08:04] MED LIST changes: -IBUP-1984 PO
[2020-06-17] MEDS ORDERED: ondansetron/PF 4mg/2ml inj IV ONE (08:20)
[2020-06-17] MEDS ORDERED: diphenhydrAMINE 50 mg/ml inj IV ONE (08:20)
[2020-06-17] MEDS ORDERED: normal saline 1000ML IV soln IVB ONE (08:20)
[2020-06-17] MEDS ORDERED: ketorolac trometh. 30mg/ml inj. IV ONE (08:20)
[2020-06-17] MEDS ORDERED: haloperidol lactate 5mg/ml inj IM ONE (08:20)
[2020-06-17 08:35] LABS: BASOPHILS # (AUTO) 0.1 X10'3 (0-0.2); BASOPHILS % (AUTO) 0.5 % (0-1); EOSINOPHILS % (AUTO) 0.2 % (0-6); HEMATOCRIT 45.7 % (42.0-52.0); HEMOGLOBIN 15.3 g/dl (14.0-17.9); LYMPHOCYTES # (AUTO) 1.8 X10'3 (1.1-4.8); LYMPHOCYTES % (AUTO) 12.4 % (21-51); MEAN CORPUSCULAR HEMOGLOBIN 30.5 PG (27.0-31.0); MEAN CORPUSCULAR HGB CONC 33.4 g/dL (33.0-36.5); MEAN CORPUSCULAR VOLUME 91.3 FL (78-98); MEAN PLATELET VOLUME 9.1 FL (7.4-10.4); MONOCYTES # (AUTO) 0.6 X10'3 (0-0.9); MONOCYTES % (AUTO) 4.1 % (2-12); NEUTROPHILS # (AUTO) 12.2 X10'3 (1.8-7.7); NEUTROPHILS % (AUTO) 82.8 % (42-75); PLATELET COUNT 317 X10'3 (140-440); RED CELL DISTRIBUTION WIDTH 14.4 % (11.5-14.5); WHITE BLOOD COUNT 14.7 X10'3 (4.5-11.0)
[2020-06-17 08:46] LABS: ALANINE AMINOTRANSFERASE 33 U/L (12-78); ALBUMIN 4.9 G/DL (3.4-5.0); ALBUMIN/GLOBULIN RATIO 1.4 (1.1-1.5); ALKALINE PHOSPHATASE 77 IU/L (46-116); ANION GAP 21 (8-16); ASPARTATE AMINO TRANSFERASE 20 U/L (10-37); BILIRUBIN,TOTAL 0.6 MG/DL (0.1-1.0); BLOOD UREA NITROGEN 17 MG/DL (7-18); BUN/CREATININE RATIO 15.3 (5.4-32.0); CHLORIDE 104 MMOL/L (99-107); CREATININE 1.11 MG/DL (0.60-1.10); GLUCOSE 210 MG/DL (70-104); LIPASE 73 U/L (73-393); POTASSIUM 3.4 MMOL/L (3.5-5.1); SODIUM 143 MMOL/L (135-145); TOTAL CARBON DIOXIDE 18.2 MMOL/L (24-32); TOTAL PROTEIN 8.5 G/DL (6.4-8.2); eGFR 81 ML/MIN
[2020-06-17] MEDS ORDERED: sucralfate 1gm/10ml UD suspension PO STA (08:56)
[2020-06-17] MEDS ORDERED: LIDOcaine Viscous 15ml cup MM ONE (09:00)
[2020-06-17] MEDS ORDERED: mag hydrox/Alum hydrox/simeth 30ml oral suspension PO ONE (09:00)
[2020-06-17 09:17] LABS: ETHANOL < 0.010 GM/DL (0.0-0.010)
--- NOTE | 2020-06-17 09:42 | NUR ---
MD ESPINAL INFORMED OF PATIENT'S DARK DAMARIS URINE AFTER 2 LITERS OF FLUID
[2020-06-17] MEDS ORDERED: POTASSIUM BICARB 20meq eff tab 20 MEQ TABLET.EFF PO ONE (09:45)
[2020-06-17] MEDS ORDERED: ringers solution, lactated 1000ml IV soln IV ONE (09:45)
[2020-06-17 10:16] LABS: CLARITY,URINE CLEAR (Clear); COLOR,URINE YELLOW (Yellow); GLUCOSE, URINE NEGATIVE (Neg); KETONES,URINE >=80 mg/dl (Neg); LEUKOCYTE ESTERASE ,URINE NEGATIVE (Neg); NITRITES, URINE NEGATIVE (Neg); OCCULT BLOOD,URINE NEGATIVE (Neg); PROTEIN,URINE TRACE mg/dl (Neg)
[2020-06-17 10:34] LABS: URINE AMPHETAMINE SCREEN NEGATIVE (Neg); URINE BARBITUATE SCREEN NEGATIVE (Neg); URINE BENZODIAZEPINES SCREEN NEGATIVE (Neg); URINE CANNABINOID SCREEN POSITIVE (Neg); URINE COCAINE SCREEN NEGATIVE (Neg); URINE METHADONE SCREEN NEGATIVE (Neg); URINE OPIATE SCREEN NEGATIVE (Neg); URINE PHENCYCLIDINE SCREEN NEGATIVE (Neg)
[2020-06-17 10:39] LABS: UA COLLECTION TYPE URINAL
[2020-06-17 10:40] LABS: MUCUS STRANDS MANY /LPF (Neg); SQUAMOUS EPITHELIAL CELL,UR FEW /LPF (FEW)
[2020-06-17 10:43] LABS: BACTERIA,URINE FEW /HPF (Neg); RBC,URINE 0-2 /HPF (0-2); WBC,URINE 0-4 /HPF (0-4)
[2020-06-17 12:09] LABS: ALBUMIN 3.5 G/DL (3.4-5.0); ANION GAP 8 (8-16); BLOOD UREA NITROGEN 15 MG/DL (7-18); BUN/CREATININE RATIO 18.3 (5.4-32.0); CALCIUM 8.3 MG/DL (8.5-10.1); CHLORIDE 112 MMOL/L (99-107); CREATININE 0.82 MG/DL (0.60-1.10); GLUCOSE 98 MG/DL (70-104); POTASSIUM 4.1 MMOL/L (3.5-5.1); SODIUM 145 MMOL/L (135-145); TOTAL CARBON DIOXIDE 25.1 MMOL/L (24-32); eGFR > 90 ML/MIN
[2020-06-17 13:14] VITALS: BP 106/55
== END 2020-06-17 13:00 | disposition home or self-care (01) ==
LOC: ER 08:04
DX: F12.188 Cannabis abuse with other cannabis-induced disorder (principal); R10.84 Generalized abdominal pain; G89.29 Other chronic pain; F41.9 Anxiety disorder, unspecified; F32.9 Major depressive disorder, single episode, unspecified; Z98.890 Other specified postprocedural states; Z72.89 Other problems related to lifestyle; Z60.2 Problems related to living alone; Z59.0 Homelessness; Z79.2 Long term (current) use of antibiotics; Z79.899 Other long term (current) drug therapy
CPT/HCPCS: 36415; 80048; 80053; 80305; 80320; 81001; 83690; 85025; 96361; 96372; 96374; 96375; 99285; J1200; J1630; J1885; J2405; J7030; J7120

== ENCOUNTER 2020-11-12 09:56 | Emergency (ER) | payer MEDICAID ==
[~2020-11-12] VITALS: Ht 167.6 cm; Wt 65.9 kg
[2020-11-12 11:08] VITALS: BP 116/77
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
== END 2020-11-12 13:05 | disposition home or self-care (01) ==
LOC: ER 09:57
DX: S90.31XA Contusion of right foot, initial encounter (principal); G89.29 Other chronic pain; F12.90 Cannabis use, unspecified, uncomplicated; Z59.0 Homelessness; Z79.899 Other long term (current) drug therapy; X58.XXXA Exposure to other specified factors, initial encounter; Y93.89 Activity, other specified; Y92.89 Other specified places as the place of occurrence of the external cause; Y99.8 Other external cause status
CPT/HCPCS: 73630; 99283

== ENCOUNTER 2020-12-10 09:59 | Emergency (ER) | payer MEDICAID ==
[~2020-12-10] VITALS: Ht 170.2 cm; Wt 65.9 kg
[2020-12-10 10:28] VITALS: BP 141/91
[2020-12-10 11:16] LABS: BASOPHILS % (AUTO) 0.2 % (0-1); EOSINOPHILS % (AUTO) 0 % (0-6); HEMATOCRIT 48.3 % (42.0-52.0); HEMOGLOBIN 16.1 g/dl (14.0-17.9); MEAN CORPUSCULAR HEMOGLOBIN 31.3 PG (27.0-31.0); MEAN CORPUSCULAR HGB CONC 33.3 g/dL (33.0-36.5); MEAN PLATELET VOLUME 8.8 FL (7.4-10.4); MONOCYTES # (AUTO) 0.3 X10'3 (0-0.9); MONOCYTES % (AUTO) 3.1 % (2-12); NEUTROPHILS # (AUTO) 9.4 X10'3 (1.8-7.7); NEUTROPHILS % (AUTO) 87.7 % (42-75); PLATELET COUNT 271 X10'3 (140-440); RED BLOOD COUNT 5.14 X10'6 (4.70-6.10); RED CELL DISTRIBUTION WIDTH 13.9 % (11.5-14.5); WHITE BLOOD COUNT 10.8 X10'3 (4.5-11.0)
[2020-12-10 11:25] LABS: ALANINE AMINOTRANSFERASE 30 U/L (12-78); ALBUMIN 4.7 G/DL (3.4-5.0); ALBUMIN/GLOBULIN RATIO 1.2 (1.1-1.5); ALKALINE PHOSPHATASE 91 IU/L (46-116); ANION GAP 18 (8-16); ASPARTATE AMINO TRANSFERASE 21 U/L (10-37); BILIRUBIN,TOTAL 0.5 MG/DL (0.1-1.0); BLOOD UREA NITROGEN 8 MG/DL (7-18); BUN/CREATININE RATIO 8.5 (5.4-32.0); CALCIUM 9.2 MG/DL (8.5-10.1); CHLORIDE 107 MMOL/L (99-107); CREATININE 0.94 MG/DL (0.60-1.10); GLUCOSE 130 MG/DL (70-104); LIPASE 69 U/L (73-393); POTASSIUM 3.6 MMOL/L (3.5-5.1); SODIUM 146 MMOL/L (135-145); TOTAL CARBON DIOXIDE 21.5 MMOL/L (24-32); TOTAL PROTEIN 8.7 G/DL (6.4-8.2); eGFR > 90 ML/MIN
[2020-12-10] MEDS ORDERED: ONDA4TAB12 PO (12:49)
[2020-12-10] MEDS ORDERED: ondansetron 4mg rapidly disintigrating tab PO ONE (12:50)
== END 2020-12-10 12:05 | disposition home or self-care (01) ==
LOC: ER 10:00
DX: R11.2 Nausea with vomiting, unspecified (principal); R53.83 Other fatigue; R10.84 Generalized abdominal pain; G89.29 Other chronic pain; F41.9 Anxiety disorder, unspecified; F32.9 Major depressive disorder, single episode, unspecified; F12.90 Cannabis use, unspecified, uncomplicated; Z98.890 Other specified postprocedural states; Z59.0 Homelessness; Z60.2 Problems related to living alone; Z79.2 Long term (current) use of antibiotics; Z79.899 Other long term (current) drug therapy
CPT/HCPCS: 36415; 80053; 83690; 85025; 99283

== ENCOUNTER 2020-12-11 07:24 | Emergency (ER) | payer MEDICAID ==
[~2020-12-11] VITALS: Ht 167.6 cm; Wt 65.9 kg
[2020-12-11 07:30] VITALS: BP 133/104
--- NOTE | 2020-12-11 08:14 | NUR ---
Patient notified general accounting clerk that he was leaving, states that he would try taking the antibiotics previously prescribed again. Dr. Salomon aware.
== END 2020-12-11 08:15 | disposition left against medical advice (07) ==
LOC: ER 07:27
DX: R11.10 Vomiting, unspecified (principal); Z53.21 Procedure and treatment not carried out due to patient leaving prior to being seen by health care provider

== ENCOUNTER 2021-02-14 09:16 | Emergency (ER) | payer MEDICAID ==
[~2021-02-14] VITALS: Ht 167.6 cm; Wt 68.2 kg
[~2021-02-14 09:16] MED LIST changes: -CEPH250T PO
[2021-02-14 09:23] VITALS: BP 127/86
[2021-02-14] MEDS ORDERED: LIDOcaine 1% W/epiNEPHrine 1:200,000 10ml vial IJ ONE (09:40)
[2021-02-14] MEDS ORDERED: TETanus/Pertussis (Acell)/Diphther VAC/PF (Tdap-Adult) 0.5ml syringe IMVAC ONE (09:40)
[2021-02-14] MEDS ORDERED: LIDOcaine 1% w/epiNEPHrine 1:200,000 30ml vial IJ ONE (10:10)
[2021-02-14] MEDS ORDERED: bacitracin 15gm ointment TP ONE (14:50)
== END 2021-02-14 14:57 | disposition home or self-care (01) ==
LOC: ER 09:17
DX: S01.01XA Laceration without foreign body of scalp, initial encounter (principal); G89.29 Other chronic pain; F41.9 Anxiety disorder, unspecified; F32.9 Major depressive disorder, single episode, unspecified; F17.200 Nicotine dependence, unspecified, uncomplicated; F12.90 Cannabis use, unspecified, uncomplicated; Z98.890 Other specified postprocedural states; Z72.89 Other problems related to lifestyle; Z60.2 Problems related to living alone; Z59.00 Homelessness unspecified; Z79.2 Long term (current) use of antibiotics; Z79.899 Other long term (current) drug therapy; X58.XXXA Exposure to other specified factors, initial encounter; Y93.89 Activity, other specified; Y92.89 Other specified places as the place of occurrence of the external cause; Y99.8 Other external cause status
CPT/HCPCS: 12032; 70450; 99284

== ENCOUNTER 2021-02-21 08:36 | Emergency (ER) | payer MEDICAID ==
[~2021-02-21] VITALS: Ht 167.6 cm; Wt 65.9 kg
[2021-02-21 08:48] VITALS: BP 106/66
== END 2021-02-21 09:34 | disposition home or self-care (01) ==
LOC: ER 08:37
DX: S01.01XD Laceration without foreign body of scalp, subsequent encounter (principal); F12.90 Cannabis use, unspecified, uncomplicated; Z72.89 Other problems related to lifestyle; Z60.2 Problems related to living alone; Z98.890 Other specified postprocedural states; Z59.00 Homelessness unspecified; Z79.2 Long term (current) use of antibiotics; Z79.899 Other long term (current) drug therapy; Z48.02 Encounter for removal of sutures; X58.XXXD Exposure to other specified factors, subsequent encounter
CPT/HCPCS: 99281

== ENCOUNTER 2021-03-29 22:05 | Emergency (ER) | payer MEDICAID ==
--- NOTE | 2021-03-29 22:18 | NUR ---
patient walked out before triage
== END 2021-03-29 23:30 | disposition left against medical advice (07) ==
LOC: ER 22:13
DX: R05.9 Cough, unspecified (principal); R09.89 Other specified symptoms and signs involving the circulatory and respiratory systems; Z53.21 Procedure and treatment not carried out due to patient leaving prior to being seen by health care provider

== ENCOUNTER 2021-04-02 05:43 | Emergency (ER) | payer MEDICAID ==
[~2021-04-02] VITALS: Ht 170.2 cm; Wt 68.2 kg
[2021-04-02] MEDS ORDERED: ONDA4TAB12 PO (06:19)
[2021-04-02] MEDS ORDERED: CLON0.1T PO (06:19)
[2021-04-02 07:21] VITALS: BP 118/81
== END 2021-04-02 07:24 | disposition home or self-care (01) ==
LOC: ER 05:43
DX: Z02.89 Encounter for other administrative examinations (principal); R11.0 Nausea; F19.239 Other psychoactive substance dependence with withdrawal, unspecified; G89.29 Other chronic pain; F41.9 Anxiety disorder, unspecified; F32.9 Major depressive disorder, single episode, unspecified; F12.90 Cannabis use, unspecified, uncomplicated; Z98.890 Other specified postprocedural states; Z72.89 Other problems related to lifestyle; Z60.2 Problems related to living alone; Z59.00 Homelessness unspecified; Z79.2 Long term (current) use of antibiotics; Z79.899 Other long term (current) drug therapy
CPT/HCPCS: 99283

== ENCOUNTER 2021-04-04 22:52 | Emergency (ER) | payer MEDICAID ==
[~2021-04-04] VITALS: Ht 167.6 cm; Wt 63.0 kg
[~2021-04-04 22:52] MED LIST changes: +CLON0.1T PO
[2021-04-04 23:23] VITALS: BP 115/79
[2021-04-05 00:07] LABS: CLARITY,URINE CLEAR (Clear); COLOR,URINE YELLOW (Yellow); GLUCOSE, URINE NEGATIVE (Neg); KETONES,URINE NEGATIVE (Neg); LEUKOCYTE ESTERASE ,URINE NEGATIVE (Neg); NITRITES, URINE NEGATIVE (Neg); OCCULT BLOOD,URINE NEGATIVE (Neg); PROTEIN,URINE NEGATIVE (Neg); UROBILINOGEN,URINE 0.2 E.U/dL (0.2-1.0)
[2021-04-05 00:13] LABS: BASOPHILS % (AUTO) 0.3 % (0-1); EOSINOPHILS # (AUTO) 0.1 X10'3 (0-0.9); EOSINOPHILS % (AUTO) 1.8 % (0-6); HEMOGLOBIN 14.6 g/dl (14.0-17.9); LYMPHOCYTES # (AUTO) 1.6 X10'3 (1.1-4.8); LYMPHOCYTES % (AUTO) 23.4 % (21-51); MEAN CORPUSCULAR HEMOGLOBIN 31.7 PG (27.0-31.0); MEAN CORPUSCULAR HGB CONC 33.9 g/dL (33.0-36.5); MEAN CORPUSCULAR VOLUME 93.6 FL (78-98); MEAN PLATELET VOLUME 8.2 FL (7.4-10.4); MONOCYTES # (AUTO) 0.7 X10'3 (0-0.9); MONOCYTES % (AUTO) 9.7 % (2-12); NEUTROPHILS # (AUTO) 4.5 X10'3 (1.8-7.7); NEUTROPHILS % (AUTO) 64.8 % (42-75); PLATELET COUNT 279 X10'3 (140-440); RED BLOOD COUNT 4.59 X10'6 (4.70-6.10); RED CELL DISTRIBUTION WIDTH 14.4 % (11.5-14.5)
[2021-04-05 00:25] LABS: UA COLLECTION TYPE NON-SPECIFIED
[2021-04-05 00:33] LABS: ALANINE AMINOTRANSFERASE 41 U/L (12-78); ALBUMIN 4.4 G/DL (3.4-5.0); ALBUMIN/GLOBULIN RATIO 1.1 (1.1-1.5); ALKALINE PHOSPHATASE 95 IU/L (46-116); ANION GAP 9 (8-16); ASPARTATE AMINO TRANSFERASE 38 U/L (10-37); BILIRUBIN,TOTAL 0.5 MG/DL (0.1-1.0); BLOOD UREA NITROGEN 16 MG/DL (7-18); BUN/CREATININE RATIO 18.2 (5.4-32.0); CALCIUM 9.3 MG/DL (8.5-10.1); CHLORIDE 102 MMOL/L (99-107); CREATININE 0.88 MG/DL (0.60-1.10); GLUCOSE 86 MG/DL (70-104); LIPASE 187 U/L (73-393); POTASSIUM 3.7 MMOL/L (3.5-5.1); SODIUM 142 MMOL/L (135-145); TOTAL PROTEIN 8.3 G/DL (6.4-8.2); eGFR > 90 ML/MIN
[2021-04-06] MEDS ORDERED: ONDA8TAB13 PO (07:04)
[2021-04-06] MEDS ORDERED: CLON0.1T PO (07:04)
== END 2021-04-05 05:38 | disposition left against medical advice (07) ==
LOC: ER 22:54
DX: R10.9 Unspecified abdominal pain (principal); Z53.21 Procedure and treatment not carried out due to patient leaving prior to being seen by health care provider
CPT/HCPCS: 36415; 74018; 80053; 81003; 83690; 85025

== ENCOUNTER 2021-04-05 08:42 | Emergency (ER) | payer MEDICAID ==
--- NOTE | 2021-04-05 08:52 | NUR ---
patient called-not in the lobby.
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
[2021-04-06] MEDS ORDERED: CLON0.1T PO (07:04)
[2021-04-06] MEDS ORDERED: ONDA8TAB13 PO (07:04)
== END 2021-04-05 09:03 | disposition left against medical advice (07) ==
LOC: ER 08:42
DX: R10.9 Unspecified abdominal pain (principal); Z53.21 Procedure and treatment not carried out due to patient leaving prior to being seen by health care provider

== ENCOUNTER 2021-04-06 06:39 | Emergency (ER) | payer MEDICAID ==
[~2021-04-06] VITALS: Ht 167.6 cm; Wt 63.6 kg
[2021-04-06 06:43] VITALS: BP 127/64
[2021-04-06] MEDS ORDERED: CLON0.1T PO (07:04)
[2021-04-06] MEDS ORDERED: ONDA8TAB13 PO (07:04)
== END 2021-04-06 08:00 | disposition home or self-care (01) ==
LOC: ER 06:41
DX: F10.20 Alcohol dependence, uncomplicated (principal); G89.29 Other chronic pain; F41.9 Anxiety disorder, unspecified; F32.9 Major depressive disorder, single episode, unspecified; F12.90 Cannabis use, unspecified, uncomplicated; F17.200 Nicotine dependence, unspecified, uncomplicated; Z72.89 Other problems related to lifestyle; Z59.00 Homelessness unspecified; Z79.899 Other long term (current) drug therapy; Y90.9 Presence of alcohol in blood, level not specified
CPT/HCPCS: 99283

== ENCOUNTER 2021-04-06 19:56 | Emergency (ER) | payer MEDICAID ==
[~2021-04-06] VITALS: Ht 167.6 cm; Wt 70.9 kg
[2021-04-06 19:59] VITALS: BP 141/82
== END 2021-04-07 04:16 | disposition home or self-care (01) ==
LOC: ER 19:57
DX: F41.9 Anxiety disorder, unspecified (principal); Z53.21 Procedure and treatment not carried out due to patient leaving prior to being seen by health care provider

== ENCOUNTER 2021-04-12 05:44 | Emergency (ER) | payer MEDICAID ==
[~2021-04-12] VITALS: Ht 167.6 cm; Wt 68.2 kg
[2021-04-12 06:05] VITALS: BP 122/74
== END 2021-04-12 08:45 | disposition left against medical advice (07) ==
LOC: ER 05:45
DX: Z76.0 Encounter for issue of repeat prescription (principal); Z53.21 Procedure and treatment not carried out due to patient leaving prior to being seen by health care provider

== ENCOUNTER 2021-04-15 18:05 | Emergency (ER) | payer MEDICAID ==
[~2021-04-15] VITALS: Ht 167.6 cm; Wt 68.2 kg
[2021-04-15 18:15] VITALS: BP 111/77
== END 2021-04-16 03:11 | disposition left against medical advice (07) ==
LOC: ER 18:05
DX: M25.572 Pain in left ankle and joints of left foot (principal); Z53.21 Procedure and treatment not carried out due to patient leaving prior to being seen by health care provider
CPT/HCPCS: 73610

== ENCOUNTER 2021-05-04 07:51 | Emergency (ER) | payer MEDICAID ==
[~2021-05-04] VITALS: Ht 167.6 cm; Wt 70.0 kg
[2021-05-04 07:58] VITALS: BP 114/87
--- NOTE | 2021-05-04 08:00 | NUR ---
pt uncooperative and noncompliant with staff and officers. 2 [employer] officers at bedside.
== END 2021-05-04 09:14 ==
LOC: EDUNIT# 07:51 → EDBD 07:51 → ER 08:12
DX: M79.89 Other specified soft tissue disorders (principal); F41.9 Anxiety disorder, unspecified; F32.9 Major depressive disorder, single episode, unspecified; F12.10 Cannabis abuse, uncomplicated; Z59.00 Homelessness unspecified; Z02.89 Encounter for other administrative examinations
CPT/HCPCS: 99284

== ENCOUNTER 2021-05-26 14:08 | Emergency (ER) | payer OTHER, MEDICAID ==
[~2021-05-26] VITALS: Ht 167.6 cm; Wt 59.1 kg
[2021-05-26 14:30] VITALS: BP 128/80
[2021-05-26] MEDS ORDERED: TETanus/Pertussis (Acell)/Diphther VAC/PF (Tdap-Adult) 0.5ml syringe IMVAC ONE (15:05)
[2021-05-26] MEDS ORDERED: LIDOcaine 1% W/epiNEPHrine 1:200,000 10ml vial IJ ONE (15:05)
[2021-05-26] MEDS ORDERED: LIDOcaine 1% W/epiNEPHrine 1:100,000 20ml vial IJ ONE (15:10)
[2021-05-26] MEDS ORDERED: CEPH-585 PO (15:42)
== END 2021-05-26 16:06 | disposition home or self-care (01) ==
LOC: ER 14:09
DX: S51.812A Laceration without foreign body of left forearm, initial encounter (principal); G89.29 Other chronic pain; F12.90 Cannabis use, unspecified, uncomplicated; Z72.89 Other problems related to lifestyle; Z59.00 Homelessness unspecified; Z79.2 Long term (current) use of antibiotics; Z79.899 Other long term (current) drug therapy; W26.8XXA Contact with other sharp object(s), not elsewhere classified, initial encounter; Y93.89 Activity, other specified; Y92.89 Other specified places as the place of occurrence of the external cause; Y99.8 Other external cause status
CPT/HCPCS: 12001; 90471; 90715; 99283

== ENCOUNTER 2021-11-06 09:23 | Emergency (ER) | payer MEDICAID, OTHER ==
[~2021-11-06] VITALS: Ht 170.2 cm; Wt 65.9 kg
[~2021-11-06 09:23] MED LIST changes: +CEPH-585 PO
[2021-11-06 09:42] VITALS: BP 128/77
== END 2021-11-06 10:08 | disposition home or self-care (01) ==
LOC: ER 09:24
DX: S90.822A Blister (nonthermal), left foot, initial encounter (principal); G89.29 Other chronic pain; F12.90 Cannabis use, unspecified, uncomplicated; Z59.00 Homelessness unspecified; X58.XXXA Exposure to other specified factors, initial encounter; Y93.89 Activity, other specified; Y92.89 Other specified places as the place of occurrence of the external cause; Y99.8 Other external cause status
CPT/HCPCS: 99281

== ENCOUNTER 2021-12-02 15:18 | Emergency (ER) | payer SELFPAY ==
[~2021-12-02] VITALS: Ht 170.2 cm; Wt 77.3 kg
[2021-12-02] MEDS ORDERED: diphenhydrAMINE 50 mg/ml inj IM ONE (15:20)
[2021-12-02] MEDS ORDERED: haloperidol lactate 5mg/ml inj IM ONE (15:20)
[2021-12-02] MEDS ORDERED: midazolam 1 mg/ML 2ml injection IM ONE (15:20)
[2021-12-02 15:23] VITALS: BP 125/82
[2021-12-02] MEDS ORDERED: LIDOcaine Viscous 15ml cup MM ONE (15:25)
[2021-12-02] MEDS ORDERED: proparacaine 0.5% ophthalmic drops 15ml EACHEYE ONE (15:25)
[2021-12-02 15:58] LABS: BASOPHILS % (AUTO) 0.4 % (0-1); EOSINOPHILS # (AUTO) 0.1 X10'3 (0-0.9); EOSINOPHILS % (AUTO) 0.9 % (0-6); HEMOGLOBIN 14.2 g/dl (14.0-17.9); LYMPHOCYTES % (AUTO) 16.8 % (21-51); MEAN CORPUSCULAR HEMOGLOBIN 29.1 PG (27.0-31.0); MEAN CORPUSCULAR HGB CONC 33.1 g/dL (33.0-36.5); MEAN CORPUSCULAR VOLUME 87.9 FL (78-98); MEAN PLATELET VOLUME 8.3 FL (7.4-10.4); MONOCYTES # (AUTO) 0.7 X10'3 (0-0.9); MONOCYTES % (AUTO) 6.1 % (2-12); NEUTROPHILS # (AUTO) 8.9 X10'3 (1.8-7.7); NEUTROPHILS % (AUTO) 75.8 % (42-75); PLATELET COUNT 350 X10'3 (140-440); RED BLOOD COUNT 4.89 X10'6 (4.70-6.10); RED CELL DISTRIBUTION WIDTH 14.6 % (11.5-14.5); WHITE BLOOD COUNT 11.7 X10'3 (4.5-11.0)
[2021-12-02 16:16] LABS: ALANINE AMINOTRANSFERASE 25 U/L (12-78); ALBUMIN 3.6 G/DL (3.4-5.0); ALBUMIN/GLOBULIN RATIO 0.7 (1.1-1.5); ALKALINE PHOSPHATASE 122 IU/L (46-116); ANION GAP 20 (8-16); ASPARTATE AMINO TRANSFERASE 23 U/L (10-37); BILIRUBIN,TOTAL 0.4 MG/DL (0.1-1.0); BLOOD UREA NITROGEN 7 MG/DL (7-18); CALCIUM 9.2 MG/DL (8.5-10.1); CHLORIDE 102 MMOL/L (99-107); CREATINE KINASE 318 U/L (39-308); CREATININE 1.16 MG/DL (0.60-1.10); ETHANOL 0.111 GM/DL (0.0-0.010); GLUCOSE 140 MG/DL (70-104); SODIUM 144 MMOL/L (135-145); TOTAL CARBON DIOXIDE 21.6 MMOL/L (24-32); TOTAL PROTEIN 8.5 G/DL (6.4-8.2); eGFR 76 ML/MIN
[2021-12-02] MEDS ORDERED: POTASSIUM BICARB 20meq eff tab 20 MEQ TABLET.EFF PO ONE (16:25)
[2021-12-02] MEDS ORDERED: ondansetron 4mg rapidly disintigrating tab PO ONE (16:25)
[2021-12-02 16:26] LABS: POTASSIUM 2.9 MMOL/L (3.5-5.1)
== END 2021-12-02 17:06 ==
LOC: ER 15:18
DX: S01.81XA Laceration without foreign body of other part of head, initial encounter; S01.01XA Laceration without foreign body of scalp, initial encounter; G89.29 Other chronic pain; Z59.00 Homelessness unspecified; F12.90 Cannabis use, unspecified, uncomplicated; X58.XXXA Exposure to other specified factors, initial encounter; Y93.89 Activity, other specified; Y92.89 Other specified places as the place of occurrence of the external cause; Y99.8 Other external cause status
CPT/HCPCS: 12002; 12013; 36415; 70450; 80053; 80320; 82550; 85025; 96372; 99284; J1200; J1630; J7030; A6449